=== PATIENT | female | born 1990 | race Caucasian/White ===

== ENCOUNTER → 2018-04-06 11:53 | Outpatient (CLI) | payer OTHER, MEDICAID, SELFPAY ==
[2018-04-06 13:22] LABS: HCG Quantitative /Beta subunit 217.37 mIU/mL
== END ==
PROVIDERS: Visit Provider Physician Assistant
DX: Z32.01 Encounter for pregnancy test, result positive (principal)
CPT/HCPCS: 36415; 84702

== ENCOUNTER → 2018-05-15 11:41 | Outpatient (CLI) | payer OTHER, MEDICAID, SELFPAY ==
--- NOTE | 2018-05-15 11:43 | DI.RAD.S_ITS ---
PROCEDURE: XR KNEE LT 1TO2V INDICATIONS: Lateral left knee pain TECHNIQUE: 2 views of the knee were acquired. COMPARISON: None. FINDINGS: Bones: No fractures or dislocations. No suspicious bony lesions. Soft tissues: No significant joint effusion. No suspicious soft tissue calcifications. IMPRESSION: No significant plain film abnormality is detected. Dictated by: Aristides Peoples M.D. on 05/15/2018 at 13:08 Approved by: Aristides Peoples M.D. on 05/15/2018 at 13:08
== END ==
PROVIDERS: Visit Provider Physician Assistant
DX: M25.562 Pain in left knee (principal)
CPT/HCPCS: 73560

== ENCOUNTER 2019-02-23 14:32 | Day surgery (SDC) | payer OTHER, MEDICAID, SELFPAY ==
[2019-02-08 11:48] VITALS: BMI 28.2
[2019-02-23] VITALS (7 sets, daily range): BP systolic 87–113; BP diastolic 52–75; PULSE 63–88; RESP 13–18; TEMP 36.3–36.9; O2SAT 98–100; BMI 28.2
--- NOTE | 2019-02-23 | PATH_ITS ---
[facility] Accession Number: [id number] . 01 Material submitted: . PART A: cervix - EXTERNAL LEEP PART B: endocervix - ECC . 01 Clinical history: . A: EXTERNAL LEEP STITCH AT 12 . 02 Diagnosis: A. 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 High-grade squamous intraepithelial lesion is present at the endocervical margins in 3-6 o'clock and 6-9 o'clock quadrants. High-grade squamous intraepithelial lesion is present within 1 mm of the ectocervical margin in the 3-6 o'clock quadrant. Electrocautery artifact and tissue disruption at margins is focally obscuring. No invasive tumor identified. . B. ECC: Shedding endometrium; negative for glandular hyperplasia, cytologic atypia, and malignancy. Fragments of endocervical tissue and an endocervical polyp; negative for glandular dysplasia and malignancy. MRV/02/26/2019 . 02 Comment: This biopsy correlates with Pap smear [id number]. . 02 Electronically signed: . Atiya Duran MD, Pathologist NPI- [id number] . 01 Gross description: . (A) Received in formalin, labeled external LEEP stitch @ 12, is a cervical LEEP excision (2.1 cm 12 o'clock to 6 o'clock, 1.2 cm 3 o'clock to 9 o'clock, 0.3 cm in depth) oriented with a two-tailed, black suture indicating 12 o'clock. The mucosa is reece-pink, smooth and shiny. No nodules, masses or lesions are identified. The possible endocervical margin is inked orange and the possible ectocervical and stromal margins are inked blue. Radially sectioned and entirely submitted clockwise from 12 o'clock as follows: (A1) 12 o'clock to 3 o'clock; (A2) 3 o'clock to 6 o'clock; (A3) 6 o'clock to 9 o'clock; (A4) 9 o'clock to 12 o'clock. (B) Received in formalin, labeled ECC, is turbid gelatinous material containing multiple fragments of red-brown tissue (2.8 x 1.4 x 0.2 cm in aggregate). Filtered and entirely submitted in cassette B1. ([id number]) /MRV . 02 Pathologist provided ICD-10: N87.1 . 02 CPT . 661661, [id number] Performed at: 01 [facility] [address] [id number] MD Nick Post MD Phone: [phone] Performed at: 02 [facility] [id number] [place], [place] [id number] MD Moon Christopher MD Phone: [phone]
[2019-02-23] MEDS: LACTATED RINGERS 1,000 ML 42 ML IV (14:47)
--- NOTE | 2019-02-23 15:14 | PM.PREOP ---
Pre-operative Note Interval Note History & Physical reviewed/Exam performed by Physician: Yes Changes to H&P: No
--- NOTE | 2019-02-23 15:27 | SUR.OPER ---
Lithotomy on padded OR bed, head on pillow, arms secured on padded arm boards at <90 degrees abduction. Legs secured in padded yellow fins stirrups.
[2019-02-23] MEDS: BUPIVACAINE 0.5% W/ EPI (PF) VIAL 30 ML INJ (15:30)
--- NOTE | 2019-02-23 15:45 | PM.OP.1 ---
Operative Date/Time/Diagnoses Date of procedure: 02/23/19 Time of procedure: 15:46 Pre-op diagnosis: MARIA DE JESUS 3 of the cervix Post-op diagnosis: same Procedure & Clinicians Procedure: Colposcopy with LEEP procedure and ECC Same procedure as scheduled: Yes Indications: MARIA DE JESUS 2-3 on colpo biopsies performed at 29 weeks patient now 2 and half months Surgeon: Guerline Muñoz Click Yes if Unassisted: Yes Anesthesia Type: General Operative Notes Findings: Normal exam under anesthesia. Aceto-white changes at 12:00 p.m. on colposcopy Closure Type: not applicable Specimen(s): other (LEEP and ECC) Estimated Blood Loss (mL): 1 Blood products transfused: none Procedure in detail: Patient was brought to the operating room she underwent general. She was placed in low stirrups. A coated bivalve speculum was placed into the vagina. Ascetic acid was placed on the cervix and colposcopy performed. The cervix was injected with 0.5% Marcaine with epinephrine. A coated single-tooth tenaculum was placed on the anterior lip of the cervix. The loop set at 60 W of cutting was used to remove the entire squamocolumnar junction. A stitch was placed at 12:00 p.m.. An ECC was performed. The tissue was cauterized external to the LEEP with ball cautery to extend the treatment zone. Monsel's was placed. The patient went to recovery room in good condition. Counts of instruments and sponges were correct. The tissue was sent for pathology. Complications: none Condition: stable Disposition: same day surgery Plan for aftercare: Follow-up in 3 weeks. Nothing in vagina for 3 weeks. Any further treatment or follow-up based on biopsy results
== END 2019-02-23 16:41 | disposition home or self-care (01) ==
PROVIDERS: Family Provider Specialist; PCP Family Medicine; Visit Provider Specialist
PROC: 0UBC7ZZ Excision of Cervix, Via Natural or Artificial Opening (ICD-10-PCS; CPT 57522; principal; 2019-02-23 15:30)
DX: D06.7 Carcinoma in situ of other parts of cervix (principal); N84.1 Polyp of cervix uteri; Z87.891 Personal history of nicotine dependence
CPT/HCPCS: 57460; J1100; J1885; J2250; J2405; J2704; J3010